=== PATIENT | male | born 1980 | race Hispanic/Latino ===

== ENCOUNTER 2018-11-18 05:33 | Inpatient (IN) | payer OTHER ==
[2018-11-18] MEDS ORDERED: LR 1,000 ML IV (06:00)
[2018-11-18] MEDS ORDERED: MIDAZOLAM INJ 2 MG/2 ML VIAL (J2250) As Ordered ×2 (06:19→06:53)
[2018-11-18] MEDS ORDERED: fentaNYL 100 MCG/2 ML INJECTION (J3010) As Ordered ×2 (06:20→06:53)
[2018-11-18] MEDS ORDERED: PROPOFOL 200 MG/20 ML VIAL As Ordered ×4 (06:22→10:08)
[2018-11-18] MEDS ORDERED: LIDOCAINE 2% INJ 100 MG/5 ML SDV (FOR ANES.) As Ordered (06:22)
[2018-11-18 06:50] LABS: BEDSIDE GLUCOSE 126 MG/DL (70-105)
[2018-11-18] MEDS: MIDAZOLAM INJ 2 MG/2 ML VIAL (J2250) IV ×2 (07:10→07:20)
[2018-11-18] MEDS: fentaNYL 100 MCG/2 ML INJECTION (J3010) IV ×2 (07:11→07:20)
[2018-11-18] MEDS: TRANEXAMIC ACID INJection 1,000 MG in D5W 100 ML IV (07:30)
[2018-11-18] MEDS: ceFAZolin 1GM INJ (J0690 PER 500MG) As Ordered (08:16)
[2018-11-18] MEDS: TRANEXAMIC ACID 100 MG/ML 10ML VIAL As Ordered (08:16)
[2018-11-18] MEDS: BUPIVACAINE LIPOSOME/PF 1.3% 20ML VIAL (13.3MG/ML)(EXPAREL)(C9290 PER1MG) As Ordered (08:16)
[2018-11-18] MEDS: LR 1,000 ML IV (11:00)
[2018-11-18] MEDS ORDERED: DEXTROSE 50% 50 ML SYRINGE IV (11:00)
[2018-11-18] MEDS ORDERED: ACETAMINOPHEN TAB 650MG DOSE (2X325MG) PO ×2 (11:00→11:15)
[2018-11-18] MEDS ORDERED: MEPERIDINE INJ 25 MG/ML VIAL (J2175) IV (11:00)
[2018-11-18] MEDS ORDERED: PERCOCET 5MG/325MG TAB PO ×2 (11:00)
[2018-11-18] MEDS ORDERED: GLUCOSE 4 GM CHEW TABLET PO (11:00)
[2018-11-18] MEDS ORDERED: GLUCAGON FOR INJ 1 MG VIAL (J1610) SC (11:00)
[2018-11-18] MEDS ORDERED: METOCLOPRAMIDE INJ 10MG/2ML VIAL (J2765) IV (11:00)
[2018-11-18] MEDS ORDERED: fentaNYL 100 MCG/2 ML INJECTION (J3010) IV (11:00)
[2018-11-18] MEDS ORDERED: ONDANSETRON 4MG/2ML VIAL (J2405) IV ×2 (11:00→11:15)
[2018-11-18] MEDS ORDERED: KETOROLAC 30 MG/ML VIAL (J1885) As Ordered (11:03)
[2018-11-18] MEDS ORDERED: FLEET ENEMA PR (11:15)
[2018-11-18] MEDS: KETOROLAC 30 MG/ML VIAL (J1885) IV ×2 (11:32→17:35)
[2018-11-18] MEDS ORDERED: ROPIvacaine 0.5% 30 ML INJECTION (J2795 PER 1MG) (11:47)
[2018-11-18] MEDS ORDERED: EPINEPHrine INJ 1 MG/ML 1ML AMP (11:47)
[2018-11-18] MEDS ORDERED: dexameTHASONE 10 MG/1 ML VIAL PRES.FREE (J1100) (11:47)
[2018-11-18] MEDS: HumaLOG INSULIN (NovoLOG) PER UNIT SC ×2 (12:00→17:30)
[2018-11-18] MEDS: PERCOCET 5MG/325MG TAB PO ×2 (13:13→21:56)
[2018-11-18] MEDS: hydroCHLOROthiazide 12.5 MG CAPSULE PO (14:38)
[2018-11-18] MEDS: LISINOPRIL 10 MG TAB PO (14:39)
[2018-11-18 17:30] LABS: BEDSIDE GLUCOSE 183 MG/DL (70-105)
[2018-11-18 20:32] LABS: BEDSIDE GLUCOSE 153 MG/DL (70-105)
[2018-11-18] MEDS: ASPIRIN 325 MG TAB PO (21:56)
[2018-11-19] MEDS: KETOROLAC 30 MG/ML VIAL (J1885) IV ×2 (00:07→05:48)
[2018-11-19 06:23] LABS: HEMATOCRIT 38.4 % (42.0-52.0); HEMOGLOBIN 13.2 g/dl (13.5-17.5); MEAN CORPUSCULAR HEMOGLOBIN 30.7 pg (27.0-33.0); MEAN CORPUSCULAR HGB CONC 34.4 g/dl (32.0-36.5); MEAN CORPUSCULAR VOLUME 89.3 fl (80.0-96.0); PLATELET COUNT, AUTOMATED 221 10^3/uL (150-450); RED CELL DISTRIBUTION WIDTH 12.4 % (11.5-14.5); WHITE BLOOD COUNT 12.1 10^3/uL (4.0-10.0)
[2018-11-19 06:25] LABS: BEDSIDE GLUCOSE 122 MG/DL (70-105)
[2018-11-19] MEDS: HumaLOG INSULIN (NovoLOG) PER UNIT SC (07:30)
[2018-11-19] MEDS: ASPIRIN 325 MG TAB PO (08:51)
[2018-11-19] MEDS: CelecoXIB (CeleBREX) 100 MG CAP PO (08:51)
[2018-11-19] MEDS: hydroCHLOROthiazide 12.5 MG CAPSULE PO (08:52)
[2018-11-19] MEDS: LISINOPRIL 10 MG TAB PO (08:52)
[2018-11-19] MEDS: PERCOCET 5MG/325MG TAB PO (08:53)
== END 2018-11-19 11:05 | disposition home or self-care (01) | DRG 470 ==
LOC: M OR 05:33 → M MS5PR 12:35
PROVIDERS: Orthopaedic Surgery
PROC: 0SRD0JZ Replacement of Left Knee Joint with Synthetic Substitute, Open Approach (ICD-10-PCS; principal; 2018-11-18 07:30)
DX: M17.12 Unilateral primary osteoarthritis, left knee (principal)

== ENCOUNTER 2019-03-10 05:42 | Inpatient (IN) | payer OTHER ==
[~2019-03-10] VITALS: Ht 177.8 cm; Wt 115.6 kg
[2019-03-10] VITALS (8 sets, daily range): BP systolic 130–142; BP diastolic 74–91; O2SAT 93
[~2019-03-10 05:42] MED LIST: LISI10TA2 PO; METF850T4 PO; NAPR-837 PO; VITA200015 PO; VITA500046 PO; VOLT1GEL15 TOP
[2019-03-10] MEDS ORDERED: MIDAZOLAM INJ 2 MG/2 ML VIAL (J2250) As Ordered ONE ×2 (06:47→07:11)
[2019-03-10] MEDS ORDERED: fentaNYL 100 MCG/2 ML INJECTION (J3010) As Ordered ONE ×2 (06:47→07:10)
[2019-03-10] MEDS ORDERED: CHOL50002 PO (06:56)
[2019-03-10] MEDS ORDERED: LR 1,000 ML IV ONE (07:00)
[2019-03-10] MEDS ORDERED: TRANEXAMIC ACID INJection 1,000 MG in D5W 100 ML IV ONE (07:00)
[2019-03-10] MEDS ORDERED: PROPOFOL 200 MG/20 ML VIAL As Ordered ONE ×5 (07:04→10:37)
[2019-03-10] MEDS ORDERED: LIDOCAINE 2% INJ 100 MG/5 ML SDV (FOR ANES.) As Ordered ONE (07:04)
[2019-03-10] MEDS ORDERED: ONDANSETRON 4MG/2ML VIAL (J2405) As Ordered ONE (07:05)
[2019-03-10] MEDS ORDERED: BUPIVACAINE/DEXTROSE 0.75% 2 ML AMP As Ordered ONE (07:12)
[2019-03-10] MEDS: MIDAZOLAM INJ 2 MG/2 ML VIAL (J2250) IV PRN ×2 (07:14→07:16)
[2019-03-10] MEDS ORDERED: TRANEXAMIC ACID 100 MG/ML 10ML VIAL As Ordered ONE (07:18)
[2019-03-10] MEDS ORDERED: ceFAZolin 1GM INJ (J0690 PER 500MG) As Ordered ONE (07:19)
[2019-03-10] MEDS ORDERED: BUPIVACAINE LIPOSOME/PF 1.3% 20ML VIAL (13.3MG/ML)(EXPAREL)(C9290 PER1MG) As Ordered ONE (07:19)
[2019-03-10] MEDS ORDERED: fentaNYL 100 MCG/2 ML INJECTION (J3010) IV PRN ×2 (07:45→11:45)
[2019-03-10] MEDS ORDERED: ePHEDrine SULFATE 25 MG/5 ML(5MG/ML) SYRINGE As Ordered ONE (08:18)
[2019-03-10] MEDS ORDERED: dexameTHASONE 10 MG/1 ML VIAL PRES.FREE (J1100) ONE ×2 (08:56→08:58)
[2019-03-10] MEDS ORDERED: LIDOCAINE 1% MDV 20ML VIAL ONE ×2 (08:56→08:58)
[2019-03-10] MEDS ORDERED: ROPIvacaine 0.5% 30 ML INJECTION (J2795 PER 1MG) ONE ×2 (08:56→08:58)
[2019-03-10] MEDS ORDERED: ONDANSETRON 4MG/2ML VIAL (J2405) IV PRN ×2 (11:45)
[2019-03-10] MEDS ORDERED: LR 1,000 ML IV SCH (11:45)
[2019-03-10] MEDS ORDERED: FLEET ENEMA PR PRN (11:45)
[2019-03-10] MEDS ORDERED: ACETAMINOPHEN TAB 650MG DOSE (2X325MG) PO PRN ×2 (11:45)
[2019-03-10] MEDS ORDERED: PERCOCET 5MG/325MG TAB PO PRN ×3 (11:45)
--- NOTE | 2019-03-10 12:41 | RO ---
DATE OF PROCEDURE: 03/10/2019 PREOPERATIVE DIAGNOSIS: Right knee osteoarthritis. POSTOPERATIVE DIAGNOSIS: Right knee osteoarthritis. PROCEDURE PERFORMED: Right total knee arthroplasty. SURGEON: Dr. Kashif Corado. ALUMINUM POOL INSTALLER: EDNA Jeff. ANESTHESIA PROVIDER: Dr. Marcano ANESTHESIA: single shot spinal and adductor canal nerve block. ANTIBIOTICS USED: 2 grams Ancef given within 1 hour of incision. OTHER MEDICATIONS USED: 1 gram IV TXA given within 15 minutes of incision. IMPLANTS USED: DePuy Attune size 7, cruciate retaining femur, size 7 fixed bearing tibial tray with 6 mm polyethylene insert and 41-mm patellar polyethylene. ESTIMATED BLOOD LOSS: 200 mL TOTAL TOURNIQUET TIME: 135 minutes at 250 mmHg, right thigh. MATERIALS SENT TO LAB: Right knee bone for permanent specimen. COMPLICATIONS: None. 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 He underwent a left total knee arthroplasty done by [facility] approximately 4 months ago and presented for right total knee arthroplasty. He had failed appropriate nonoperative treatments to include activity modification and anti-inflammatories, exercise therapy, injections and activity modifications. He had radiographs that were consistent with severe osteoarthritis with varus malalignment. I counseled the patient regarding the risks, benefits, indications, alternatives versus nonoperative management and given that he failed appropriate nonoperative treatment, recommended right total knee arthroplasty. The patient was understanding and provided informed consent for a total knee arthroplasty. INTRAOPERATIVE FINDINGS: The patient had severe right knee osteoarthritis large, osteophytes. After completion of procedure, the patient had full range of motion, was stable to varus and valgus stress at 30 degrees and 90 degrees and 0 degrees, and had excellent patellar tracking. DESCRIPTION OF PROCEDURE: The patient was positively identified in the preop holding where the surgical site was marked. He was given a single shot adductor canal nerve block by the anesthesia service for postop pain control. He was then brought to the operating room where he was given single shot spinal anesthesia. He was positioned supine on a regular table with all bony prominences appropriately padded. Sequential compression device (SCD) was placed on the nonoperative extremity for deep venous thrombosis (DVT) prophylaxis. He was prepped and draped in the usual sterile fashion. A final time-out was performed. I made a 15 cm longitudinal incision just medial to the midline extending from proximal to superior pole of the patella to just medial to the tibial tubercle. I dissected through skin and subcutaneous tissue. I identified the retinaculum and performed a standard medial parapatellar arthrotomy. Given the large significant osteophytes, the patient has in the patella, I elected to perform the patellar resection first. After resecting patellar osteophytes, I then measured the thickness of the patella to 29 mm and performed a 14 mm resection of the patellar leaving 15 mm remaining. I then placed a manhole cover over the patella to protect it throughout the remainder of the case. I then performed a resection of the synovium at the superior aspect of the knee. I then everted the patella, brought the knee into flexion after performing standard medial release. I resected osteophytes of the proximal tibia and distal femur. I then introduced the step drill for intramedullary femoral guide followed by introduction of the intramedullary distal femur cutting guide which was sent to a 5 degree valgus cut and 9 mm resection. This femur cut was performed then followed by placing the posterior referencing sizing block onto the femur. I then measured to a size 7. I placed the 4-in-1 cutting block on the femur and performed the anterior, posterior, and chamfer cuts and resected remaining surrounding osteophytes. After completion of the femoral cuts, I then placed the extramedullary tibial cutting guide. Given the significant varus deformity, it was set to resect approximately 1-2 mm off the medial side which corresponded to about 9-10 mm off the lateral side. I performed the tibial resection and removed tibial plateau. Residual osteophytes off the posterior tibia were excised. I then removed the medial and lateral menisci. I then placed a lamina wait staff in the lateral compartment and performed resection of posteromedial osteophytes and noticed a balanced flexion gap. I then repeated this procedure on the lateral side and removed large lateral posterior osteophytes. After completion of the osteophyte resection, I then placed trial baseplate was placed in line with the junction of the medial and middle thirds of the tibial tubercle, appropriate external rotation. Prior to placing the tibial guide, I checked extension and flexion gaps, which were noted to be well balanced I then placed the size 7 tibial trial with a 6 mm trial polyethylene insert, followed by the size 7 cruciate retaining femoral trial. I then placed the patellar trial and brought the knee through range of motion using standard no-touch technique. There was some medial sided tightness. I resected additional osteophytes and medial tibial plateau and pie-crusted the medial cruciate ligament (MCL), which noted to be significantly tightened. After completion of this, the knee was well balanced in flexion and extension to both varus and valgus stress. The patella had excellent tracking using a no-touch technique. After confirmation of this, all the trials were removed. Bony debris was cleared from the wound. I injected a mixture of 20 mL of Exparel expanded with 40 mL of normal saline into the posterior capsule, posterior cruciate ligament (PCL) parapatellar area and medial and lateral joint capsule for postoperative pain control. I then cleared all blood bony debris from the cancellous bone followed by performing the sulcus cut the distal femur. I then placed the final implants noting excellent fixation. I placed an additional 2 grams of topical TXA in the wound. At this point, the tourniquet was let down. Hemostasis was obtained using Bovie electrocautery. I again brought the knee through a final range of motion and noted excellent patellar tracking and was stable into flexion and extension. I then, after thoroughly irrigated the wound with normal saline, performed a closure of the retinaculum using interrupted 0 Vicryl suture in [id number] fashion followed by running barbed suture noting a watertight seal of the retinaculum. I then irrigated the wound again and closed subcutaneous layer with buried interrupted #2-0 Vicryl suture followed by running 3-0 Monocryl for the skin. Pernio Dermabond dressing was applied followed by additional sterile dressings. This ended the procedure. I was present scrubbed in for all critical portions of the case. POSTOPERATIVE PLAN: The patient will be admitted to hospital floor for physical therapy and pain control with weightbearing as tolerated to the right lower extremity. He will undergo a total knee rehabilitation protocol and be discharged home when criteria met. BULMARO
--- NOTE | 2019-03-10 13:34 | REP ---
RIGHT KNEE, TWO VIEWS: AP and lateral views of the right knee are performed. There is a total knee prosthesis in good position. Structures are well aligned. There are tiny metallic densities projecting in the region of the proximal posterolateral calf soft tissues. Electronically Signed by Tomás Rush MD 03/10/2019 03:24 P
[2019-03-10 14:14] LABS: INR 0.98; PROTHROMBIN TIME 13.1 SECONDS (12.1-14.4)
[2019-03-10] MEDS: KETOROLAC 30 MG/ML VIAL (J1885) IV SCH (18:28)
[2019-03-11] MEDS: KETOROLAC 30 MG/ML VIAL (J1885) IV SCH ×2 (00:37→06:17)
[2019-03-11 06:00] VITALS: BP 124/74
[2019-03-11 06:21] LABS: HEMATOCRIT 36.7 % (42.0-52.0); HEMOGLOBIN 12.4 g/dl (13.5-17.5); MEAN CORPUSCULAR HEMOGLOBIN 29.5 pg (27.0-33.0); MEAN CORPUSCULAR HGB CONC 33.8 g/dl (32.0-36.5); MEAN CORPUSCULAR VOLUME 87.4 fl (80.0-96.0); PLATELET COUNT, AUTOMATED 232 10^3/uL (150-450)
--- NOTE | 2019-03-11 07:42 | IPNPDOC ---
Date Seen The patient was seen on 03/11/19. Progress Note SUBJECTIVE: Patient is a 39 y/o male POD1 s/p R TKA. Patient seen and examined overnight. No acute overnight events. Has gotten up to the restroom on his own and voided spontaneously. He participated in physical therapy yesterday. Pain well controlled. OBJECTIVE PHYSICAL EXAMINATION: VITAL SIGNS: Please see below. GENERAL: well nourished male, no acute distress CARDIOVASCULAR: 2+ DP/PT pulses, BCR all digits RLE. RESPIRATORY: non labored breathing. EXTREMITIES: RLE dressing in place, c/d/i. able to perform SLR. Full active ankle ROM. Knee PROM 0-75 degrees NEUROLOGICAL: Sensation/motor intact in all RLE distributions. MIld paresthesias over foot LABORATORY DATA: Please see below. IMAGING: Post op films demonstrate well fixed TKA components DVT prophylaxis ordered?: Aspirin ASSESSMENT : This is a 39 y/o male POD1 s/p R TKA doing well PLAN: 1. WBAT RLE 2. PT for ambulation 3. Aspirin for DVT prophylaxis 4. Dressing down tomorrow at home 5. d/c labs DISPOSITION: likely d/c home today after PT [facility]I&O Vital Signs Date Time Temp Pulse Resp B/P (MAP) Pulse Ox O2 Delivery O2 Flow Rate FiO2 03/11/19 06:00 98.4 82 18 124/74 (91) 95 03/10/19 21:00 2.0 93 03/10/19 20:00 Nasal Cannula I&O- Last 24 Hours up to 6 AM 03/11/19 06:00 Intake Total 2420 ml Output Total 1650 ml Balance 770 ml Laboratory Data 24H LABS Laboratory Tests 2 03/10/19 13:45: Prothrombin Time 13.1, Prothromb Time International Ratio 0.98 03/11/19 05:36: Nucleated Red Blood Cells % (auto) 0.0 CBC/BMP Laboratory Tests 03/11/19 05:36 Red Blood Count 4.20 L, Mean Corpuscular Volume 87.4, Mean Corpuscular Hemoglobin 29.5, Mean Corpuscular Hemoglobin Concent 33.8, Red Cell Distribution Width 12.9 AKASH PETTY MD Mar 11, 2019 07:42
[2019-03-11 07:58] VITALS: O2SAT 97
[2019-03-11] MEDS ORDERED: ASPIRIN ENTERIC 325 MG TAB PO SCH (09:00)
[2019-03-12] MEDS ORDERED: CelecoXIB (CeleBREX) 100 MG CAP PO SCH (09:00)
== END 2019-03-11 10:55 | disposition home or self-care (01) | DRG 470 ==
LOC: M OR 05:42 → M MS5PR 12:35
PROVIDERS: ADMIT Orthopaedic Surgery; ATTEND Orthopaedic Surgery
PROC: 0SRC0JZ Replacement of Right Knee Joint with Synthetic Substitute, Open Approach (ICD-10-PCS; principal; 2019-03-10 07:30)
DX: M17.11 Unilateral primary osteoarthritis, right knee (principal)

== ENCOUNTER 2021-02-19 19:51 | Emergency (ER) | payer OTHER ==
[~2021-02-19] VITALS: Ht 177.8 cm; Wt 123.5 kg
[~2021-02-19 19:51] MED LIST changes: +CHOL50002 PO; +LISI10TA15 PO; -LISI10TA2 PO
[2021-02-19] MEDS ORDERED: METF10004 (19:59)
[2021-02-19] MEDS ORDERED: HYDR-3490 (19:59)
[2021-02-19] MEDS ORDERED: LISI20TA33 (19:59)
[2021-02-19 21:56] LABS: RSV AMPLIFICATION NEGATIVE (NEGATIVE)
[2021-02-19 23:21] VITALS: BP 141/91
== END 2021-02-19 23:24 | disposition home or self-care (01) ==
LOC: M ED 19:51
DX: U07.1 COVID-19 (principal); R51.9 Headache, unspecified; R05 Cough; R53.83 Other fatigue; J34.89 Other specified disorders of nose and nasal sinuses; R07.0 Pain in throat; Z20.822 Contact with and (suspected) exposure to COVID-19; R09.82 Postnasal drip; E11.9 Type 2 diabetes mellitus without complications; I10 Essential (primary) hypertension; Z79.899 Other long term (current) drug therapy; Z88.8 Allergy status to other drugs, medicaments and biological substances

== ENCOUNTER 2021-02-19 22:39 | Outpatient (CLI) | payer OTHER ==
[~2021-02-19] VITALS: Ht 177.8 cm; Wt 122.2 kg
[~2021-02-19 22:39] MED LIST changes: +HYDR-3490; +LISI20TA33; +METF10004
[2021-02-19] MEDS ORDERED: NS 1,000 ML IV SCH (23:03)
[2021-02-19] MEDS ORDERED: methylPREDNISolone 125MG 2ML VIAL IV PRN (23:05)
[2021-02-19] MEDS ORDERED: EPINEPHrine INJ 1 MG/ML 1ML AMP IM PRN (23:05)
[2021-02-19] MEDS ORDERED: ALBUTEROL SULFATE 2.5 MG/0.5 ML INH NEB SOLN INH PRN (23:05)
[2021-02-19] MEDS ORDERED: diphenhydrAMINE 50MG/ML VIAL (J1200) IV PRN (23:05)
[2021-02-19] MEDS ORDERED: ALBUTEROL 90 MCG/ACT 8GM HFA INHALER INH PRN (23:05)
--- NOTE | 2021-02-19 23:08 | HPEPDOC ---
[facility] Medical History & Physical Date of Admission Feb 19, 2021 Date of Service: Feb 20, 2021 Attending Physician: WENDY TATE MD History and Physical TIME OF SERVICE: 1205am CHIEF COMPLAINT: cough HISTORY OF PRESENT ILLNESS: This 40 yr old M presented w c/o cough, sore throat, muscle aches and CARDONA. A co- workers relative was diagnosed with COVID therefore the patient decided to come to the ER for a COVId test which was positive. REVIEW OF SYSTEMS: 12-point review of systems negative except as listed in HPI PAST MEDICAL/ SURGICAL HISTORY: HTN DM SOCIAL HISTORY: n/a FAMILY HISTORY: n/a ALLERGIES: Please see below. HOME MEDICATIONS: Please see below. PHYSICAL EXAMINATION: T 97.3, HR 96, BP 162/90, R 18, o2 98% on RA GENERAL APPEARANCE: well nourished and developed / NAD INTEGUMENT: not flushed or diaphoretic PSYCHIATRIC: A&Ox 3 LABORATORY DATA: n/a IMAGING: n/a MICROBIOLOGY: COVId 19 + ASSESSMENT: Mr. Cowart is a 40 yr old w HTN, DM & obesity who was diagnosed w COVID and will receive monocolonal antibody infusion. PLAN: 1 COVID 19 bamlanivimab order set 2 HTN f/u w PCP 3 DM f/u w PCP Dispo: home tonight after infusion Home Medications Scheduled Cholecalciferol (Vitamin D3) (Vitamin D3) 5,000 Unit Capsule, 1 CAP PO DAILY Miscellaneous Medications Hydrochlorothiazide (Hydrochlorothiazide) 25 Mg Tablet Lisinopril (Lisinopril) 20 Mg Tablet Metformin HCl (Metformin HCl) 1,000 Mg Tablet Allergies Coded Allergies: meloxicam (Verified Allergy, Intermediate, hives, 03/10/19) PT SAYS HE CAN TAKE ASA, TORADOL, AND CELEBREX WITH NO ISSUES A-FIB/CHADSVASC A-FIB History Current/History of A-Fib/PAF?: No Current PO Anticoag Therapy: No WENDY TATE MD Feb 19, 2021 23:08
[2021-02-19 23:34] VITALS: BP 137/87
[2021-02-20] VITALS (7 sets, daily range): BP systolic 116–145; BP diastolic 66–79
[2021-02-20] MEDS ORDERED: BAMLANIVIMAB 700 MG in NS 250 ML IV ONE (00:10)
== END 2021-02-20 03:03 | disposition home health service (06) ==
LOC: M OPCLI4 22:39 → M 4MAIN 23:20 → M OPCLI4 02-20 03:03
PROVIDERS: ATTEND Emergency Medicine
DX: U07.1 COVID-19 (principal)